=== PATIENT | female | born 1945 | race American Indian/Alaskan Native ===

== ENCOUNTER → 2019-07-20 | Emergency (ER) | payer MEDICARE ==
[~2019-07-20] VITALS: Ht 160 cm; Wt 93.2 kg
[~2019-07-20] MED LIST: Cipro HC otic suspension 10ML bottle EACH EAR STA; ciprofloxacin 0.3% 2.5ml ophthalmic solution EACHEYE ONE; proparacaine 0.5% ophthalmic drops 15ml EACHEYE ONE
[2019-07-21 00:51] VITALS: BP 164/100
== END | disposition home or self-care (01) ==
LOC: ER 23:43
DX: H10.13 Acute atopic conjunctivitis, bilateral (principal); I16.0 Hypertensive urgency
CPT/HCPCS: 82948; 99283